=== PATIENT | female | born 1980 | race Caucasian/White ===

== ENCOUNTER 2016-05-26 14:04 | Emergency (ER) | payer MEDICAID, OTHER ==
--- NOTE | 2016-05-26 15:13 | EDM.PDOC ---
ED HPI Behavioral Health - General Chief Complaint: Drug or Alcohol Abuse Stated Complaint: Heroin withdrawal Time Seen by Provider: 05/26/16 14:50 Source of Information: Reports: Patient, RN notes reviewed Exam Limitations: Reports: No limitations - History of Present Illness INITIAL COMMENTS - FREE TEXT/NARRATIVE: 36 year old female presents to the ED for help with opiate withdrawal. The patient says she has been using heroin for the past 2 years. She usually snorts the heroin but has occasionally injected. She last used yesterday morning. She is now experiencing body aches, diarrhea, chills, nausea, and anxiety. She moved here from [place] approximately 2 years ago and never established with a PCP or Pain specialist regarding her chronic back pain related to degenerative disc disease. She says she is done using drugs illegally and wants to stop. When asked if she would like inpatient treatment she did not answer. She says she feels she can do it on her own. She denies using alcohol or any other types of drugs. 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 DJD Social & Family History - Family History Family Medical History: Noncontributory - Tobacco Use Smoking Status *Q: Current Every Day Smoker Years of Tobacco use: 12 Packs/Tins Daily: 1 - Caffeine Use Caffeine Use: Reports: Soda - Recreational Drug Use Recreational Drug Use: Yes Drug Use in Last 12 Months: Yes Recreational Drug Type: Reports: Heroin Recreational Drug Use Frequency: Daily ED ROS GENERAL - Review of Systems Review Of Systems: See Below Constitutional: Reports: chills. Denies: fever Respiratory: Reports: No Symptoms. Denies: Shortness of Breath Cardiovascular: Reports: No symptoms. Denies: Chest pain GI/Abdominal: Reports: Diarrhea, Nausea. Denies: Vomiting Musculoskeletal: Reports: back pain, muscle pain (generalized) Neurological: Denies: Headache, Numbness, Tingling, Difficulty Walking, Weakness ED EXAM, BEHAVIORAL HEALTH - Physical Exam Exam: See Below Exam Limited By: No limitations General Appearance: alert, WD/WN, anxious Eye Exam: bilateral eye: EOMI, normal inspection, PERRL (pupils are small but not pinpoint ) Throat/Mouth: Normal inspection, Normal oropharynx, Other (poor dental hygeine) Respiratory/Chest: no respiratory distress, lungs clear, normal breath sounds Cardiovascular: normal peripheral pulses, regular rate, rhythm, no murmur. No: tachycardia GI/Abdominal: normal bowel sounds, soft, non tender Back Exam: normal inspection, full range of motion, other (genealized discomfort ). No: muscle spasm, vertebral tenderness Neurological: alert, normal gait, no motor/sensory deficits, oriented x 3 Psychiatric: alert, oriented, restless, inattentive, poor eye contact. No: suicidal thoughts, paranoid thoughts, threatening behavior Skin Exam: Warm, Dry, Intact COURSE, BEHAVIORAL HEALTH COMP - Course Vital Signs: Last Vital Signs Temp 97.2 F 05/26/16 14:13 Pulse 83 05/26/16 14:13 Resp 15 05/26/16 14:13 BP 139/80 05/26/16 14:13 Pulse Ox 100 05/26/16 14:13 Re-Assessment/Re-Exam: Vital signs are stable. Patient declined inpatient treatment. She feels she can stop on her own. She will be referred to [facility]. Also, she agrees to establish with a PCP. I scheduled her an appointment with Dr. Jacobo tomorrow. I explained that we will not be prescribing opiates for opiate withdrawal. She was understanding of this. I agreed to give her Ativan 0.5mg PO TID PRN #5. She states understanding that she cannot use this in combination with any opiate. She understands that combining these medications is very dangerous and could result in . She agrees to take the medications as prescribed. She will be discharged home. Educated on return precautions. Departure - Departure Time of Disposition: 15:14 Disposition: Home, Self-Care 01 Condition: good Clinical Impression: Heroin withdrawal Chronic pain Qualifiers: Chronic pain type: chronic pain syndrome Qualified Code(s): G89.4 - Chronic pain syndrome Prescriptions: LORazepam [Ativan] 0.5 mg PO TID PRN #5 tablet PRN Reason: Withdrawal Symptoms Instructions: Opioid Withdrawal Referrals: PCP,None [Primary Care Provider] - Additional Instructions: Follow-up with Dr. Jacobo tomorrow. We scheduled you an appointment for 1pm on Monday05/27/16. Arrive at 12:30 and bring your picture ID and insurance information. Ativan 0.5mg every 8 hours as needed for withdrawal symptoms Do not use Ativan if you continue to use heroin or any other pain medication. Return to ER with worsening of symptoms No driving while taking Ativan. Follow-up with [facility] for outpatient treatment. Call [phone] to schedule or attend their walk-in clinic at 8am on Monday and Monday
[2016-05-26 17:12] VITALS: BP 126/93
== END 2016-05-26 15:38 | disposition home or self-care (01) ==
LOC: JD.ED 14:04
DX: F11.23 Opioid dependence with withdrawal (principal); G89.4 Chronic pain syndrome; Z79.899 Other long term (current) drug therapy; F17.210 Nicotine dependence, cigarettes, uncomplicated; M06.9 Rheumatoid arthritis, unspecified
CPT/HCPCS: 99283; 99284

== ENCOUNTER 2016-09-11 13:19 | Emergency (ER) | payer MEDICAID ==
[2016-09-11 13:49] VITALS: BP 157/102
[2016-09-11] MEDS ORDERED: Ketorolac 60 MG/2 ML SDV IM ONE (14:47)
[2016-09-11 15:48] LABS: ACETAMINOPHEN 0 ug/mL (10-30)
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
== END 2016-09-11 16:20 | disposition home or self-care (01) ==
LOC: JD.ED 13:19
DX: R44.3 Hallucinations, unspecified (principal); F17.210 Nicotine dependence, cigarettes, uncomplicated
CPT/HCPCS: 36415; 80053; 80306; 81001; 84443; 85025; 96372; 99285; G0480; J1885; 99283

== ENCOUNTER 2016-09-12 18:06 | Emergency (ER) | payer MEDICAID ==
[2016-09-12 18:21] VITALS: BP 125/95
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
[2016-09-13] MEDS ORDERED: QUEtiapine 100 MG Tab PO ONE (20:02)
== END 2016-09-12 20:39 | disposition home or self-care (01) ==
LOC: JD.ED 18:06
DX: F22 Delusional disorders (principal); F17.210 Nicotine dependence, cigarettes, uncomplicated; Z96.22 Myringotomy tube(s) status
CPT/HCPCS: 99285; A9270; 99283

== ENCOUNTER 2017-05-12 13:04 | Emergency (ER) | payer MEDICAID ==
[2017-05-12 13:25] VITALS: BP 100/54
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
== END 2017-05-12 14:12 | disposition home or self-care (01) ==
LOC: JD.ED 13:04
DX: M25.512 Pain in left shoulder (principal); M62.838 Other muscle spasm; F17.210 Nicotine dependence, cigarettes, uncomplicated; Z79.899 Other long term (current) drug therapy
CPT/HCPCS: 99283